=== PATIENT | female | born 1990 | race Caucasian/White ===

== ENCOUNTER 2018-07-19 06:30 | Inpatient (IN) ==
[~2018-07-19 06:30] MED LIST: ANCEF 1 GRAM IV PREMIX* 1 G/50 ML BAG IV ONE; ANCEF VIAL 1 GRAM IVP ONE; D5 1/2 NS 1000 ML 1,000 ML IV SCH; LR 1000 ML IV 1,000 ML IV ONE
[2018-07-19] MEDS ORDERED: DURAMORPH ONE ×2 (06:58→07:14)
[2018-07-19] MEDS ORDERED: LR 1000 ML IV 1,000 ML IV ONE (06:58)
[2018-07-19] MEDS ORDERED: XYLOCAINE 1 % (PLAIN) ONE (06:58)
[2018-07-19] MEDS ORDERED: D5 1/2 NS 1L W PITOCIN 20 UNITS/L 20 UNITS/1,000 ML BAG IV ONE (07:27)
[2018-07-19] MEDS ORDERED: ZOFRAN INJ 4 MG VIAL IVP PRN ×2 (08:20→08:58)
[2018-07-19] MEDS ORDERED: BENADRYL INJ 50 MG VIAL IVP PRN ×2 (08:20→08:58)
[2018-07-19] MEDS ORDERED: REGLAN INJ 10 MG VIAL IVP PRN (08:20)
[2018-07-19] MEDS ORDERED: NARCAN INJ IVP PRN (08:58)
[2018-07-19] MEDS ORDERED: ADACEL or BOOSTRIX TDaP VACCINE IM ONE ×2 (08:58→12:38)
[2018-07-19] MEDS ORDERED: D5 1/2 NS 1000 ML 1,000 ML with PITOCIN 20 UNITS IV SCH ×2 (09:00)
[2018-07-19] MEDS: TORADOL 30 MG VIAL IVP PRN ×2 (09:33→15:51)
[2018-07-19] MEDS: ZANTAC PO SCH ×2 (09:35→21:55)
[2018-07-19] MEDS: PRENATAL PLUS PO SCH (09:35)
[2018-07-19] MEDS: REGLAN INJ 10 MG VIAL IVP PRN ×2 (11:31→15:50)
[2018-07-19] MEDS ORDERED: PITOCIN ONE ×2 (15:44→16:19)
[2018-07-19] MEDS ORDERED: DIPRIVAN VIAL ONE ×2 (15:44→15:45)
[2018-07-19] MEDS ORDERED: ZOFRAN INJ 4 MG VIAL ONE (15:44)
[2018-07-19] MEDS ORDERED: MARCAINE 0.5% ONE (15:44)
[2018-07-19] MEDS ORDERED: KETALAR ONE (15:45)
[2018-07-19] MEDS ORDERED: VERSED ONE (15:45)
[2018-07-19] MEDS: MYLICON TAB 80 MG CHEW PO PRN (23:56)
[2018-07-20] MEDS: TORADOL 30 MG VIAL IVP PRN (00:09)
[2018-07-20 05:01] LABS: HEMATOCRIT 28.2 % (36.0-47.0); HEMOGLOBIN 9.6 g/dL (12.0-16.0)
[2018-07-20] MEDS: PERCOCET TAB 5/325 MG PO PRN ×3 (07:15→20:00)
[2018-07-20] MEDS: COLACE CAP 100 MG PO SCH ×2 (08:36→20:46)
[2018-07-20] MEDS: PRENATAL PLUS PO SCH (08:36)
[2018-07-20] MEDS: ZANTAC PO SCH ×2 (08:36→20:46)
[2018-07-20] MEDS: MYLICON TAB 80 MG CHEW PO PRN ×2 (08:38→18:49)
[2018-07-20] MEDS: MOTRIN TAB 800 MG PO PRN (10:49)
[2018-07-20] MEDS: BACTROBAN TOPICAL OINT TOP SCH ×2 (13:51→21:23)
[2018-07-21] MEDS: PERCOCET TAB 5/325 MG PO PRN ×3 (03:16→10:55)
[2018-07-21] MEDS: BACTROBAN TOPICAL OINT TOP SCH (05:05)
[2018-07-21] MEDS: MOTRIN TAB 800 MG PO PRN (07:34)
[2018-07-21] MEDS: COLACE CAP 100 MG PO SCH (08:31)
[2018-07-21] MEDS: ZANTAC PO SCH (08:31)
[2018-07-21] MEDS: PRENATAL PLUS PO SCH (08:31)
[2018-07-21] MEDS: MYLICON TAB 80 MG CHEW PO PRN (08:34)
[2018-07-21 10:10] VITALS: BP 105/63
== END 2018-07-21 11:45 | disposition home or self-care (01) | DRG 766 ==
LOC: LD 06:30 → MED/SURG 09:15
PROVIDERS: ADMIT Specialist; ATTEND Specialist
DX: Z3A.39 39 weeks gestation of pregnancy; N85.5 Inversion of uterus; O34.211 Maternal care for low transverse scar from previous cesarean delivery; Z37.0 Single live birth; Z23 Encounter for immunization
CPT/HCPCS: 36415; 85014; 85018; 90715; A4222; S0020; S0197; J0690; J1200; J1885; J2250; J2405; J2590; J2704; J2765; J3490; J7120